=== PATIENT | female | born 1985 | race Hispanic/Latino ===

== ENCOUNTER 2017-08-04 22:17 | Emergency (ER) | payer OTHER ==
[~2017-08-04] VITALS: Ht 167.6 cm; Wt 57.6 kg
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
[2017-08-05] MEDS ORDERED: MOBIC15 M1 PO (00:22)
[2017-08-05 00:56] VITALS: BP 122/87
== END 2017-08-05 00:57 ==
LOC: ERH 22:17
DX: T76.11XA Adult physical abuse, suspected, initial encounter (principal); S09.90XA Unspecified injury of head, initial encounter; S16.1XXA Strain of muscle, fascia and tendon at neck level, initial encounter; Y04.0XXA Assault by unarmed brawl or fight, initial encounter
CPT/HCPCS: 81025